=== PATIENT | male | born 1945 | race Caucasian/White ===

== ENCOUNTER → 2016-12-18 | Outpatient (CLI) | payer OTHER ==
[~2016-12-18] MED LIST: ASPI81TA28 PO; ATOR-22 PO; CETI10TA84 PO; CYAN10005 PO; HYDR25TA4 PO; POTA1TAB94 PO
--- NOTE | 2016-12-18 14:22 | DIAGNOSTIC IMAGING REPORT ---
CHEST 2 VIEWS ROUTINE CLINICAL HISTORY: FEVER AND CHILLS COMPARISON STUDY: No previous studies for comparison. FINDINGS: The cardiac and mediastinal contours are normal. There is no evidence of focal pulmonary consolidation. There is no evidence of failure. No pleural effusions are visualized.[ IMPRESSION: No active disease in the chest. Electronically signed by: Kirk العلي M.D. 12/18/2016 2:20 PM Dictated Date/Time: 12/18/2016 2:20 PM
== END | disposition home or self-care (01) ==
LOC: C.RADPV 13:54
PROVIDERS: ATTEND Family Medicine
DX: R50.9 Fever, unspecified (principal)

== ENCOUNTER → 2017-06-11 | Outpatient (CLI) | payer OTHER ==
[2017-06-11 13:27] LABS: ALT/SGPT 35 U/L (12-78); BLOOD UREA NITROGEN 20 mg/dl (7-18); BUN/CREATININE RATIO 18.4 (10-20); CALCIUM 8.7 mg/dl (8.5-10.1); CARBON DIOXIDE 29 mmol/L (21-32); CHLORIDE 107 mmol/L (98-107); CREATININE 1.07 mg/dl (0.60-1.40); GLUCOSE 91 mg/dl (70-99); POTASSIUM 4.2 mmol/L (3.5-5.1); SODIUM 141 mmol/L (136-145)
[2017-06-11 13:30] LABS: ALB/GLOB RATIO 1.1 (0.9-2); ALKALINE PHOSPHATASE 76 U/L (45-117); AST/SGOT 29 U/L (15-37); CHOLESTEROL 123 mg/dl (0-200); CHOLESTEROL/HDL RATIO 2.2; HDL CHOLESTEROL 56 mg/dl; LDL CHOLESTEROL CALCULATED 54 mg/dl; TRIGLYCERIDES 67 mg/dl (0-150); VERY LOW DENSITY LIPOPROT CALC 13 mg/dl
== END | disposition home or self-care (01) ==
LOC: C.LABPVFM 07:50
PROVIDERS: ATTEND Family Medicine
DX: E78.5 Hyperlipidemia, unspecified (principal); I10 Essential (primary) hypertension; R73.01 Impaired fasting glucose

== ENCOUNTER → 2017-12-21 | Outpatient (CLI) | payer OTHER ==
--- NOTE | 2017-12-21 10:40 | DIAGNOSTIC IMAGING REPORT ---
RIGHT THUMB 3 VIEWS HISTORY: MUCOUS CYST OF FINGER RIGHT THUMB COMPARISON: None. FINDINGS: There is no fracture or dislocation. Mild soft tissue swelling within the right thumb. No radiopaque foreign bodies. 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 IMPRESSION: Degenerative changes within the right thumb. No underlying bony abnormality. Electronically signed by: Felipe Cerna M.D. 12/21/2017 10:38 AM Dictated Date/Time: 12/21/2017 10:36 AM
== END | disposition home or self-care (01) ==
LOC: C.RADPV 10:19
PROVIDERS: ATTEND Family Medicine
DX: M67.441 Ganglion, right hand (principal)